=== PATIENT | male | born 1985 | race Two or more races ===

== ENCOUNTER 2024-01-13 13:14 | Emergency (ER) | payer SELFPAY ==
[~2024-01-13] VITALS: Ht 172.7 cm; Wt 84.0 kg
[~2024-01-13 13:14] MED LIST: OLAN10TA26 PO
[2024-01-13 13:23] VITALS: BP 127/74; PULSE 57; RESP 15; TEMP 97.6
== END 2024-01-13 13:38 | disposition left against medical advice (07) ==
LOC: EMS 13:15
DX: Z75.9 Unspecified problem related to medical facilities and other health care (principal); Z53.21 Procedure and treatment not carried out due to patient leaving prior to being seen by health care provider

== ENCOUNTER 2024-01-13 14:54 | Emergency (ER) | payer SELFPAY ==
[~2024-01-13] VITALS: Ht 172.7 cm; Wt 81.8 kg
[2024-01-13 15:39] VITALS: TEMP 98.3
[2024-01-13 15:40] LABS: BASOPHILS % (AUTO) 0.7 % (0.0-2.0); EOSINOPHILS % (AUTO) 1.1 % (1.0-6.0); HEMOGLOBIN 12.2 g/dL (13.5-17.5); LYMPHOCYTES # (AUTO) 1.6 K/uL (1.0-4.8); MEAN CORPUSCULAR HEMOGLOBIN 27.7 pg (26.0-34.0); MEAN CORPUSCULAR HGB CONC 32.9 G/dL (31.0-37.0); MEAN CORPUSCULAR VOLUME 84 fL (80-100); MONOCYTES # (AUTO) 0.5 K/uL (0.1-1.0); MONOCYTES % (AUTO) 8.1 % (2.0-9.0); NEUTROPHILS # (AUTO) 3.5 K/uL (1.8-7.7); NEUTROPHILS % (AUTO) 61.1 % (40.0-70.0); PLATELET COUNT (AUTO) 224 K/uL (150-450); RED BLOOD CELL COUNT(AUTO) 4.39 MIL/uL (4.50-5.90); RED CELL DISTRIBUTION WIDTH 14.6 % (11.5-14.5); WHITE BLOOD COUNT (AUTO) 5.7 K/uL (4.5-11.0)
[2024-01-13 15:51] LABS: ANION GAP 3 mmol/L (8-16); CALCIUM, TOTAL 8.6 mg/dL (8.8-10.5); CARBON DIOXIDE 31 mmol/L (22-29); CHLORIDE 105 mmol/L (98-107); CREATININE 0.74 mg/dL (0.60-1.30); GLOMERULAR FILTR. RATE CALC > 60 mL/min (>60); GLUCOSE,RANDOM 82 mg/dL (70-110); SODIUM SERUM 139 mmol/L (136-145); UREA NITROGEN, BLOOD 12 mg/dL (7-18)
[2024-01-13 16:02] LABS: ALCOHOL, BLOOD (SERUM) < 3 mg/dL (0-10)
[2024-01-13 16:05] LABS: POTASSIUM 2.7 mmol/L (3.5-5.1)
[2024-01-13] MEDS: POTASSIUM CHLORIDE 20 MEQ ER TABLET PO ONE ×2 (17:05→21:23)
[2024-01-13 17:39] VITALS: BP 133/86; PULSE 59; RESP 18
== END 2024-01-13 22:21 | disposition admitted as inpatient to this hospital (09) ==
LOC: EMS 14:54
DX: F32.9 Major depressive disorder, single episode, unspecified (principal); E87.6 Hypokalemia
CPT/HCPCS: 99285; 80048; 85025; 36415; 84132; G0480